=== PATIENT | female | born 1995 | race Two or more races ===

== ENCOUNTER 2020-09-24 11:41 | Emergency (ER) | payer MEDICAID, OTHER ==
[~2020-09-24] VITALS: Ht 165.1 cm; Wt 45.4 kg
[2020-09-24 12:35] VITALS: BP 108/49
[2020-09-24] MEDS ORDERED: LIDOCAINE 1% HCL (LOCAL ANESTH.) INJ 20ML MDV IJ ONE (13:15)
== END 2020-09-24 13:45 | disposition home or self-care (01) ==
LOC: ER 11:41
DX: S51.811A Laceration without foreign body of right forearm, initial encounter (principal); W25.XXXA Contact with sharp glass, initial encounter; Y93.89 Activity, other specified; Y92.89 Other specified places as the place of occurrence of the external cause; Y99.8 Other external cause status
CPT/HCPCS: 12002; 99283; J2001